=== PATIENT | male | born 1940 | race Caucasian/White ===

== ENCOUNTER 2017-07-24 09:13 | Outpatient (CLI) | payer MEDICARE, OTHER | END 2017-07-24 23:59 | disposition home or self-care (01) | LOC: RT 09:13 | PROVIDERS: ATTEND Internal Medicine Pulmonary Disease | DX: J45.909 Unspecified asthma, uncomplicated (principal) | CPT/HCPCS: 94618 ==

== ENCOUNTER 2023-05-31 10:46 | Outpatient (CLI) | payer OTHER ==
[~2023-05-31 10:46] MED LIST: BARIUM SULFATE 340 ML SUSP.RECON***PROCEDURE AREA ONLY**DONT ENTER PO ONE
== END 2023-05-31 23:59 | disposition home or self-care (01) ==
LOC: RAD 10:46
PROVIDERS: ATTEND Surgery
DX: K21.9 Gastro-esophageal reflux disease without esophagitis (principal)
CPT/HCPCS: 74220

== ENCOUNTER 2024-11-27 07:46 | Day surgery (SDC) | payer MEDICARE ==
[2024-11-21 14:21] LABS: BASOPHILS # (AUTO) 0.1 X10'3 (0-0.2); BASOPHILS % (AUTO) 1.1 % (0-1); EOSINOPHILS # (AUTO) 0.2 X10'3 (0-0.9); EOSINOPHILS % (AUTO) 3.8 % (0-6); LYMPHOCYTES # (AUTO) 1.9 X10'3 (1.1-4.8); LYMPHOCYTES % (AUTO) 31.5 % (21-51); MEAN CORPUSCULAR HEMOGLOBIN 31.5 PG (27.0-31.0); MEAN CORPUSCULAR HGB CONC 33.2 g/dL (33.0-36.5); MEAN CORPUSCULAR VOLUME 94.9 FL (78-98); MEAN PLATELET VOLUME 8.1 FL (7.4-10.4); MONOCYTES # (AUTO) 0.5 X10'3 (0-0.9); MONOCYTES % (AUTO) 8.4 % (2-12); NEUTROPHILS # (AUTO) 3.3 X10'3 (1.8-7.7); NEUTROPHILS % (AUTO) 55.2 % (42-75); PRE OP HEMATOCRIT 41.2 % (42.0-52.0); PRE OP HEMOGLOBIN 13.7 g/dL (14.0-17.9); PRE OP PLATELET COUNT 157 X10'3 (140-440); RED BLOOD COUNT 4.34 X10'6 (4.70-6.10); RED CELL DISTRIBUTION WIDTH 13.7 % (11.5-14.5)
[2024-11-21 14:30] LABS: ALBUMIN 3.7 G/DL (3.4-5.0); ALBUMIN/GLOBULIN RATIO 1.2 (1.1-1.5); ALKALINE PHOSPHATASE 66 IU/L (46-116); BLOOD UREA NITROGEN 15 MG/DL (7-18); BUN/CREATININE RATIO 15.2 (10.0-20.0); CALCIUM 8.5 MG/DL (8.5-10.1); CHLORIDE 106 MMOL/L (99-107); CREATININE 0.99 MG/DL (0.60-1.10); PRE OP ALT 29 U/L (30-65); PRE OP ANION GAP 10 (8-16); PRE OP AST 25 U/L (10-37); PRE OP BILIRUB, TOTAL 0.5 MG/DL (0.0-1.0); PRE OP GLUCOSE 84 MG/DL (70-104); PRE OP POTASSIUM 4.2 MMOL/L (3.4-5.1); PRE OP SODIUM 143 MMOL/L (135-145); TOTAL CARBON DIOXIDE 27.5 MMOL/L (24-32); TOTAL PROTEIN 6.7 G/DL (6.4-8.2); eGFR 72 ML/MIN
[~2024-11-27] VITALS: Ht 175.3 cm; Wt 89.5 kg
[2024-11-27] VITALS (9 sets, daily range): BP systolic 126–140; BP diastolic 60–78; PULSE 70–77; RESP 12–16; TEMP 98.4; O2SAT 96–100
[~2024-11-27 07:46] MED LIST changes: +ASPI-611 PO; -BARIUM SULFATE 340 ML SUSP.RECON***PROCEDURE AREA ONLY**DONT ENTER PO ONE; +BUDE10.2 INH; +DOXA1TAB2 PO; +LEVO100T PO; +LOSA-416 PO; +MECL-302 PO; +OMEP20CA15 PO; +ROSU40TA89 PO
[2024-11-27 08:28] LABS: BILIRUBIN,URINE NEGATIVE (Neg); CLARITY,URINE CLEAR (Clear); COLOR,URINE YELLOW (Yellow); GLUCOSE, URINE NEGATIVE (Neg); KETONES,URINE NEGATIVE (Neg); LEUKOCYTE ESTERASE ,URINE NEGATIVE (Neg); NITRITES, URINE NEGATIVE (Neg); OCCULT BLOOD,URINE TRACE-INTACT (Neg); PROTEIN,URINE NEGATIVE (Neg)
[2024-11-27 08:39] LABS: UA COLLECTION TYPE NON-SPECIFIED
[2024-11-27] MEDS: famotidine 20mg tablet PO ONE (08:48)
[2024-11-27] MEDS: ringers solution, lacted 1,000 ML IV SCH (08:48)
[2024-11-27] MEDS: ceFAZolin 2gm/dext,iso 50mL 50 ML IV ONE (08:48)
[2024-11-27 08:49] LABS: RBC,URINE 0-2 /HPF (0-2)
[2024-11-27 08:50] LABS: AMORPHOUS URATES 1+; BACTERIA,URINE FEW /HPF (Neg); MUCUS STRANDS FEW /LPF (Neg); SQUAMOUS EPITHELIAL CELL,UR FEW /LPF (FEW)
[2024-11-27] MEDS ORDERED: morphine 4 MG/ML inj SYRINge IV PRN (09:15)
[2024-11-27] MEDS ORDERED: meperidine/PF 25mg/ml syringe IV PRN ×3 (09:15)
[2024-11-27] MEDS ORDERED: enalaprilat 1.25mg/ml 2ml vial IV PRN (09:15)
[2024-11-27] MEDS ORDERED: proCHLORperazine 10 MG/2 ml inj IV PRN (09:15)
[2024-11-27] MEDS ORDERED: morphine 2 MG/ML inj. syringe IV PRN (09:15)
[2024-11-27] MEDS ORDERED: ondansetron/PF 4mg/2ml inj IV PRN (09:15)
[2024-11-27] MEDS ORDERED: labetalol 20mg/4ml (5mg/ml) syringe IV PRN (09:15)
[2024-11-27] MEDS ORDERED: ringers solution, lacted 1,000 ML IV SCH (09:15)
[2024-11-27] MEDS ORDERED: fentaNYL/PF 50MCG/1 ML 2ML syringe ONE (10:48)
[2024-11-27] MEDS ORDERED: midazolam 1 mg/ML 2ml injection ONE (10:48)
[2024-11-27] MEDS ORDERED: LIDOcaine 2% (20mg/ml) 5ml vial ONE (10:59)
[2024-11-27] MEDS ORDERED: propofol inj 20 ML IV ONE (10:59)
[2024-11-27] MEDS ORDERED: ondansetron/PF 4mg/2ml inj ONE (11:00)
[2024-11-27] MEDS ORDERED: dexamethasone sod phosphate 4mg/ml inj. ONE (11:06)
[2024-11-27] MEDS ORDERED: bacitracin 15gm ointment TP ONE (11:07)
[2024-11-27] MEDS: BUPIVAcaine/PF 2.5 mg/ml (0.25%) 30ml vial IJ ONE (11:13)
--- NOTE | 2024-11-27 13:00 | OPERATIVE REPORT ---
DATE OF SURGERY: 11/27/2024 DICTATING PHYSICIAN: KELLI HAWKINS DPM PREOPERATIVE DIAGNOSES: Left foot pain, left foot deep peroneal nerve neuritis. POSTOPERATIVE DIAGNOSES: Left foot pain, left foot deep peroneal nerve neuritis. PROCEDURES: * Superficial peroneal nerve neurectomy. * Deep peroneal nerve neurectomy. SURGEON: Kelli Hawkins DPM FOREST PATHOLOGIST: None. ANESTHESIA: General. HEMOSTASIS: None. COMPLICATIONS: None. SPECIMENS: None. ESTIMATED BLOOD LOSS: Less than 10-15 mL. HARDWARE: None. FINDINGS: None. INDICATIONS: The patient presented to the office with the above-listed complaints, which have been unresponsive to conservative treatment options, thus surgical options have been offered along with all potential risks, complications, and surgical outcomes being fully explained to the patient's level of understanding. No guarantees were given. Clinical and radiographic data correlate with the above diagnosis. Before the procedure, I did map out the patient's area of pain and consistently, the patient was complaining of a positive Tinel sign distal to a region over the midfoot. I did not provide any guarantees as he has had multiple procedures in his past. He understands this. DESCRIPTION OF PROCEDURE: The patient was brought to the operating room and placed on the operating table in a supine position. The patient was induced under general anesthesia. The foot and ankle were prepped and draped in the usual aseptic fashion. The previously applied calf tourniquet was applied, but never inflated. Preoperative antibiotics were started and a timeout was called. Deep and superficial peroneal nerve neurectomy: We then brought our attention to the dorsal aspect of the patient's midfoot overlying the area of maximal tenderness. We made sure to map out the DP artery, which was more medial to this and we carefully made our incision, which was approximately a 4-5 cm longitudinal linear incision using a #15 blade. We carefully dissected down to the level of the subcutaneous tissue with care being taken to identify and retract all vital neurovascular structures. Immediately, when we dissected past the subcutaneous tissue, it was noted that there was a crossing branch of the superficial peroneal nerve that was overlying the area of maximal tenderness. Preoperatively, the patient was also complaining of some radiating symptoms that were going over the first metatarsal that were coming from lateral to medial. I first started by dissecting around this nerve to see if we can identify more of the deep peroneal nerve branch, which we did. We carefully dissected past the level of the deep fascial area and then the tendons were retracted and we identified the neurovascular bundle. We made sure to follow the tendon distally in order to identify the crossing structure of the nerve and the vascular bundle. We identified the vascular bundle entering into the first interspace and the nerve branch was carefully identified. The nerve was identified. Distal over the first tarsometatarsal joint midfoot area, it was noted that the patient did have an increase in perineural fibromatous tissue of this nerve. We carefully took out a 3 cm section of the nerve. The most proximal cut was as far proximal as possible where this was entering into the near dorsal hindfoot and ankle. We did this not using tourniquet in order to identify for any areas of bleeders, but none were to be found. Even after transection of the nerve, there was no lumen identified with this nerve branch, which further confirmed that this was the nerve. The patient's distal forefoot still appeared to be warm and felt warm after we were done with our procedure, so therefore, we flushed with copious amounts of sterile normal saline and then we closed in a layered fashion. We then brought our attention to the dorsal aspect where we identified the superficial peroneal nerve branch that was crossing the surgical area, this nerve looked a little irregular in appearance from the other nerve branches and there seemed to be some scar tissue adhesions surrounding it. We then decided to transect this nerve branch as well as the patient was getting symptoms crossing the region during the pre op evaluation and this did not follow the distribution of the DP nerve. We then evaluated for any other regions of irregularity but non was found. 3-0 Vicryl was used to close the subcutaneous tissue and 3-0 nylon was used for skin in horizontal mattress technique. The skin was then dressed with triple antibiotic ointment followed by Adaptic, 4 x 4's, and Webril. The patient was placed into a well-padded moderate compressive dressing with an Bonilla bandage and then a CAM walking boot. This CAM walking boot was dispensed and fitted from my office and placed on the patient today. The patient was placed into PACU with stable vital signs and vascular status intact to the operative foot. The patient is going to be partial protected weightbearing to the operative foot and is instructed to call me in approximately 1-2 weeks after surgery. The entire case was performed in a teaching fashion and the patient was followed in the PACU and the patient had vascular status intact, but due to the nerve block, the patient did feel numb to the appropriate regions. So, therefore, we informed the patient to call me with any questions or concerns, but the patient will follow up with me in approximately 1-2 weeks after surgery. The entire case was performed in a teaching fashion. I was available pre and postoperatively and answered question from the patient and his family. KELLI HAWKINS DPM TID: [id number] RECEIPT: [id number] ALEIDA SEGUNDO
== END 2024-11-27 12:50 | disposition home or self-care (01) ==
LOC: PAS 07:46
PROVIDERS: ATTEND Podiatrist Foot & Ankle Surgery
DX: M79.2 Neuralgia and neuritis, unspecified (principal); M21.6X2 Other acquired deformities of left foot; K21.9 Gastro-esophageal reflux disease without esophagitis; M19.90 Unspecified osteoarthritis, unspecified site; I10 Essential (primary) hypertension; F41.9 Anxiety disorder, unspecified; M19.079 Primary osteoarthritis, unspecified ankle and foot; M19.072 Primary osteoarthritis, left ankle and foot; M19.042 Primary osteoarthritis, left hand; M19.011 Primary osteoarthritis, right shoulder; M17.11 Unilateral primary osteoarthritis, right knee; E78.00 Pure hypercholesterolemia, unspecified; E03.9 Hypothyroidism, unspecified; Z79.899 Other long term (current) drug therapy; Z98.890 Other specified postprocedural states
CPT/HCPCS: 28055; 36415; 80053; 81001; 82948; 85025; 87088; A6223; J1100; J2003; J2250; J2405; J2704; J3010; J3490; J7030; J7120; Z7506; Z7508; Z7512; A4215; A4618; A6449; A7000